=== PATIENT | male | born 2000 | race Caucasian/White ===

== ENCOUNTER 2023-04-27 00:29 | Day surgery (SDC) | payer BC, SELFPAY ==
[2023-04-17 15:04] VITALS: BMI 19.7
--- NOTE | 2023-04-26 18:55 | PM.HPGS ---
History of Present Illness History of Present Illness Consent: Risks, benefits, and alternatives have been discussed and questions answered. Patient agrees to proceed with procedure. Chief complaint: abdominal pain, other fecal abnormalities Narrative: Elton Cifuentes is a 22 year old male With a long history of abdominal pain. He states that he feels constipated and needs to strain. When does have a bowel movement it is usually loose. Serology for celiac disease was negative but he had an elevation of cerevisiae antibody suggestive of inflammatory bowel disease. Review of Systems Review of Systems: All systems reviewed & are unremarkable except as noted in HPI and below PMFSH Past Medical History Medical History Anxiety Depression Surgical History Surgical History History of myringotomy Social History Social History Smoking status: Current every day smoker Tobacco type: e-cigarettes/vaping Second hand tobacco smoke exposure: No Alcohol intake: current Drinks per week: 2 Substance use: current Substance use type: marijuana Living arrangements: alone Occupation/Education: student Gender identity (if verbalized by the patient): Male Sexual Orientation (if Verbalized by the Patient): Straight or Heterosexual Spiritual care concerns: No Meds Home Medications and Allergies Home Medications Medication Instructions Recorded Confirmed Type dextroamphetamine-amphetamine ER 10 mg PO DAILY 02/26/23 04/17/23 History 10 mg 24hr capsule,extend release (Adderall XR) fluoxetine 10 mg tablet 40 mg PO DAILY 02/26/23 04/17/23 History Allergies Allergy/AdvReac Type Severity Reaction Status Date / Time No Known Allergies Allergy Unknown Verified 04/17/23 15:03 Exam Const: General: alert Orientation/consciousness: patient oriented x3 Resp: Auscultation: clear to auscultation bilaterally Cardio: Rhythm: regular rhythm GI: GI Palp: Yes Soft to palpation and No Tenderness to palpation present (GI) Neuro: General: patient oriented x3 Assessment and Plan Assessment and plan (1) Chronic diarrhea: Code(s): K52.9 - Noninfective gastroenteritis and colitis, unspecified Status: Acute Assessment and Plan: Colonoscopy with possible biopsy or polypectomy or cautery or injection of substances.
[2023-04-27 06:15] VITALS: BP 124/90; PULSE 107; RESP 18; TEMP 36.8; O2SAT 99; BMI 16.7
--- NOTE | 2023-04-27 07:10 | WPDANESEPPF ---
Anes - Initial Pre Proc Eval Procedure: Operation Date: 04/27/23 07:30 Proposed Procedures p Colonoscopy - Dylon Peterson MD Date/Time: 04/27/23 07:10 Surgeon: Dylon Peterson MD Pre Op Diagnosis: abdominal pain, other fecal abnormalities Patient Data Age: 22 Gender: M Height: 1.83 m Weight: 55.8 kg Last Vital Signs Temp 36.8 C 04/27/23 06:15 Pulse 107 H 04/27/23 06:15 Resp 18 04/27/23 06:15 BP 124/90 04/27/23 06:15 Pulse Ox 99 04/27/23 06:15 O2 Del Method Room Air 04/27/23 06:15 Allergies Allergy/AdvReac Type Severity Reaction Status Date / Time No Known Allergies Allergy Unknown Verified 04/27/23 07:00 Home Medications Medication Instructions Recorded Confirmed Type dextroamphetamine-amphetamine ER 10 mg PO DAILY 02/26/23 04/27/23 History 10 mg 24hr capsule,extend release (Adderall XR) fluoxetine 10 mg tablet 40 mg PO DAILY 02/26/23 04/27/23 History Patient hx anesthesia problems: none Family hx anesthesia problems: none Results Review: All pre-operative results and documents have been reviewed as part of the pre-operative evaluation. [facility] Past Medical History Medical History Anxiety Depression Surgical History Surgical History History of myringotomy Social History Social History Smoking status: Current every day smoker Tobacco type: e-cigarettes/vaping Second hand tobacco smoke exposure: No Alcohol intake: current Drinks per week: 2 Substance use: current Substance use type: marijuana Living arrangements: alone Occupation/Education: student Gender identity (if verbalized by the patient): Male Sexual Orientation (if Verbalized by the Patient): Straight or Heterosexual Spiritual care concerns: No Anes - Eval Final PreProcedure Day of Procedure 04/27/23 07:10 Patient weight: normal Heart: regular rate and rhythm Lungs: clear to auscultation and normal air movement Airway: Mallampati scale class II Neurological: alert and oriented Last oral intake: >/= 8 hours ASA classification: II Emergent: no Anesthetic plan: proceed Anesthesia type and monitoring: general GIVS Results Review: All pre-operative results and documents have been reviewed as part of the pre-operative evaluation. Informed Consent: The patient's anesthetic plan and its attendant risks and benefits were discussed with the patient/family/POA. Questions were solicited and answers provided to the satisfaction of the patient/family/POA.
[2023-04-27 07:47] VITALS: BP 106/66; PULSE 65; RESP 21; O2SAT 98
[2023-04-27] MEDS: LACTATED RINGERS 1,000 ML 150 ML IV CONT (07:52)
[2023-04-27 07:57] VITALS: BP 111/84; PULSE 76; RESP 23; O2SAT 100
[2023-04-27 08:07] VITALS: BP 126/90; PULSE 61; RESP 33; O2SAT 100
== END 2023-04-27 08:13 | disposition home or self-care (01) ==
PROVIDERS: PCP Family Medicine; Visit Provider Internal Medicine Gastroenterology
PROC: 0DJD8ZZ Inspection of Lower Intestinal Tract, Via Natural or Artificial Opening Endoscopic (ICD-10-PCS; CPT 45378; principal; 2023-04-27 07:30)
DX: R19.7 Diarrhea, unspecified (principal); F41.9 Anxiety disorder, unspecified; F32.A Depression, unspecified; F17.290 Nicotine dependence, other tobacco product, uncomplicated; F12.90 Cannabis use, unspecified, uncomplicated
CPT/HCPCS: 45380; 88305; J2704; J7120